=== PATIENT | male | born 1945 | race Caucasian/White ===

== ENCOUNTER 2019-05-11 10:49 | Day surgery (SDC) | payer MEDICARE, OTHER ==
[2019-05-11] VITALS (10 sets, daily range): BP systolic 131–147; BP diastolic 77–110
[~2019-05-11] VITALS: Ht 185.4 cm; Wt 95.3 kg
[2019-05-11] MEDS ORDERED: HEParin (CATH LAB) 2,000 ML IV ONE (10:53)
[2019-05-11] MEDS ORDERED: LIDOCAINE 1% INJ 20 ML 20 ML VIAL ONE (10:53)
[2019-05-11] MEDS ORDERED: NS IV 1000 ML 1,000 ML ONE (10:53)
[2019-05-11 11:25] LABS: HEMOGLOBIN 14.8 G/DL (13.3-17.7); MEAN PLATELET VOLUME 9.5 FL (7.4-10.4); RED CELL DISTRIBUTION WIDTH 13.4 % (10.0-14.5); WHITE BLOOD COUNT 13.9 10^3/uL (4.3-11.0)
[2019-05-11] MEDS ORDERED: VIT1CAPS44 PO (11:32)
[2019-05-11] MEDS ORDERED: METF-398 PO (11:32)
[2019-05-11] MEDS ORDERED: ASPI325T32 PO (11:32)
[2019-05-11] MEDS ORDERED: GABA300S2 PO (11:32)
[2019-05-11] MEDS ORDERED: LISI-552 PO (11:32)
[2019-05-11] MEDS ORDERED: GABA-488 PO (11:34)
--- NOTE | 2019-05-11 11:36 | NUR ---
SPOKE WITH PT (HE BROUGHT IN HOME MEDS) WELL GOING THRU THE EXT MED HIS TO COMPLETE THE MED REC. ALL MEDICATION BOTTLES HE BROUGHT IN AND WERE DOCUMENTED HAD CURRENT DATING ON THEM. PLEASE NOTE: LISINOPRIL 20MG: PATIENT ONLY TAKES 1/2 A TAB TO EQUAL A 10MG DOSE GABAPENTIN 300MG: PATIENT TAKES 3 CAPS TID FOR A TOTAL FOR OF 900MG TID OTC MEDICATIONS: PRESERVISION AEREDS 2: 1 CAP BID ASPIRIN 325M TAB HS
[2019-05-11 11:39] LABS: PROTHROMBIN TIME PATIENT 13.5 SEC (12.2-14.7)
[2019-05-11 11:44] LABS: ALBUMIN 4.4 GM/DL (3.2-4.5); BILIRUBIN,TOTAL 1.1 MG/DL (0.1-1.0); CALCIUM 9.6 MG/DL (8.5-10.1); CREATININE SERUM 1.49 MG/DL (0.60-1.30); POTASSIUM 4.2 MMOL/L (3.6-5.0); TOTAL PROTEIN 8.1 GM/DL (6.4-8.2)
[2019-05-11] MEDS ORDERED: fentaNYL INJECTION 100 MCG/2 ML AMP ONE (11:44)
[2019-05-11] MEDS ORDERED: MIDAZOLAM 5 MG/5 ML (VERSED) VIAL ONE (11:44)
--- NOTE | 2019-05-11 11:58 | Cardiac Procedure Note-CS/ASA ---
Pre-Procedure Note Pre-Op Procedure Note H&P Reviewed The H&P was reviewed, patient examined and no changes noted. Date H&P Reviewed: May 11, 2019 Time H&P Reviewed: 11:58 Conscious Sedation Pre-Proced Time 11:58 ASA Score 3 For ASA 3 and 4: Consider anesthesia and medical clearance. Also, for patients with a history of failed moderate sedation consider anesthesia. Airway Lungs Heart ASA score ASA 1: a normal healthy patient ASA 2: a patient with a mild systemic disease (mid diabetes, controlled hypertension, obesity ASA 3: a patient with a severe systemic disease that limits activity (angina, COPD, prior Myocardial infarction) ASA 4: a patient with an incapacitating disease that is a constant threat to life (CHF, renal failure) ASA 5: a moribund patient not expected to survive 24 hrs. (ruptured aneurysm) ASA 6: a declared brain- patient whose organs are being harvested. For emergent operations, add the letter E after the classification Mallampati Classification Grade 2 Sedation Plan Analgesia, Amnesia, Plan communicated to team members, Discussed options with patient/fam, Discussed risks with patient/fam The patient is an appropriate candidate to undergo the planned procedure, sedation, and anesthesia. The patient immediately re-assessed prior to indication. LAMAR LARKIN MD FACP FAC CCDS May 11, 2019 11:58
[2019-05-11] MEDS ORDERED: HEParin 1000 UNIT/ML (10ML VIAL) FOR BOLUS ONE (12:23)
[2019-05-11] MEDS ORDERED: EPTIFIBATIDE BOLUS 20 ML IV ONE (12:23)
[2019-05-11] MEDS ORDERED: NITRO DRIP 25000 MCG/D5W 250 ML IV ONE (12:27)
[2019-05-11] MEDS ORDERED: CLOPIDOGREL 300 MG (PLAVIX) TABLET PO ONE (12:59)
[2019-05-11] MEDS ORDERED: ASPIRIN 81 MG CHEW (CHILDREN'S ASA) ONE (13:00)
[2019-05-11] MEDS ORDERED: PATIENT MAY USE OWN MEDS, ALL PO SCH (13:15)
--- NOTE | 2019-05-11 13:23 | CARDIAC CATHETERIZATION ---
DATE OF SERVICE: 05/11/2019 CARDIAC CATHETERIZATION AND CORONARY INTERVENTION The patient is a 74-year-old man with multiple coronary artery disease risk factors who has symptoms that are suggestive of new onset of angina. Cardiac catheterization was carried out today after having obtained an informed consent for cardiac catheterization and possible ad hoc coronary intervention. DESCRIPTION OF PROCEDURE: Vigorous perioperative hydration was initiated well prior to the cardiac catheterization. This was because the patient has evidence of diabetic nephropathy and chronic kidney disease. Vigorous perioperative hydration was carried out to reduce risk of contrast nephropathy. He was brought to the cardiac catheterization laboratory. The right groin was prepared and draped in the usual sterile fashion. Lidocaine 1% was used for local anesthesia. Modified Seldinger technique was used to advance a 5-Faroese sheath into the right femoral artery. A 5-Faroese JL4 catheter for left coronary angiography, 5-Faroese JR4 catheter for right coronary angiography, 5-Faroese pigtail catheter was used for left heart catheterization. Left ventricular angiography was not performed. This was to conserve contrast to reduce risk of contrast nephropathy. PERCUTANEOUS INTERVENTION TO THE LEFT ANTERIOR DESCENDING: Following completion of the diagnostic procedure, we exchanged the sheath over a wire for a 6-Faroese sheath. We used a 6-Faroese JL4 guide catheter to engage the left coronary artery. We gave 6000 units of intravenous heparin and double bolus of Integrilin. We advanced a ChoICE floppy wire across the 90% stenosis in the distal left anterior descending. We advanced Alpine Xience 2.25 x 12 mm stent to the lesion and the stent was deployed at 16 atmospheres, achieving a final stent lumen size of approximately 2.55. Subsequent angiography revealed 0% residual stenosis at the previous site of 90% stenosis. Angioplasty equipment was removed. Angiography of the right femoral artery was carried out through the sheath. Mynx was used to achieve hemostasis. As stated, vigorous perioperative hydration was started prior to the procedure, continued during the procedure and afterwards. HEMODYNAMICS: Left ventricular end-diastolic pressure following coronary angiography was 15 mmHg. There was no significant pressure gradient on pullback across the aortic valve. Ascending aortic pressure was 130/63 with a mean of 90 mmHg. CORONARY ANGIOGRAPHY: There is mild plaque scattered throughout the coronary vessels. Left anterior descending artery does not exhibit significant obstructive disease. Left anterior descending artery has 60% midvessel and 90% distal stenosis. Distal stenosis was stented with Alpine Xience 2.25 x 12 mm stent that was deployed at 16 atmospheres. First diagonal branch of left anterior descending artery is of a rather small caliber and has multiple 90% stenoses in its proximal portion. The left circumflex artery has approximately 40% proximal stenosis. Left circumflex artery is dominant. Right coronary artery is small and nondominant. It has multiple stenoses of 60% to 70% in its proximal and mid portion and up to 90% in its distal portion. CONCLUSIONS: 1. Coronary artery disease as detailed above. A 90% distal left anterior descending artery stenosis was stented with Alpine Xience 2.25 x 12 mm stent deployed at 16 atmospheres. The mid left anterior descending artery has 60% stenosis. A small caliber first diagonal branch has 90% proximal stenoses. The right coronary artery is small and nondominant and has multiple stenoses with up to 90% stenosis in its distal portion. 2. Elevated left ventricular end-diastolic pressure. DISCUSSION AND RECOMMENDATIONS: Dual antiplatelet therapy is being initiated. He remains hospitalized for observation after today's procedure. If symptoms continue, we can give consideration to percutaneous intervention to the small caliber diagonal and the right coronary. Ideally, however, it would be best to treat these medically (if the patient remains asymptomatic). Job ID: [id number] DocumentID: [id number] Dictated Date: 05/11/2019 12:56:38 Java Front End Web Developer Date: 05/11/2019 13:22:30 Dictated By: LAMAR LARKIN MD, MA, FACP, FACC,
[2019-05-11] MEDS: NS IV 1000 ML 1,000 ML IV SCH (14:04)
[2019-05-11] MEDS: inSUlin ASPART (NovoLOG) 1 UNIT/0.01 ML (CHARGE PER UNIT) SC SCH ×2 (14:42→21:17)
[2019-05-11] MEDS: PRESERVISION PO SCH (16:05)
[2019-05-11] MEDS ORDERED: GABAPENTIN 300 MG (NEURONTIN) CAP PO SCH (21:00)
[2019-05-11] MEDS ORDERED: guaiFENesin/DM (ROBITUSSIN DM) 10 ML UDC ONE (21:06)
[2019-05-11] MEDS: GABAPENTIN 300 MG (NEURONTIN) CAP PO SCH (21:15)
[2019-05-11] MEDS: guaiFENesin/DM (ROBITUSSIN DM) 10 ML UDC PO PRN (21:18)
[2019-05-12] VITALS: BP 136/84
[2019-05-12] MEDS: guaiFENesin/DM (ROBITUSSIN DM) 10 ML UDC PO PRN ×2 (00:20→03:26)
[2019-05-12] MEDS: NS IV 1000 ML 1,000 ML IV SCH (02:44)
[2019-05-12 03:29] VITALS: BP 139/80
[2019-05-12 03:56] LABS: HEMOGLOBIN 12.5 G/DL (13.3-17.7); MEAN PLATELET VOLUME 9.7 FL (7.4-10.4); RED CELL DISTRIBUTION WIDTH 13.2 % (10.0-14.5); WHITE BLOOD COUNT 11.9 10^3/uL (4.3-11.0)
[2019-05-12 04:25] LABS: CALCIUM 8.7 MG/DL (8.5-10.1); CREATININE SERUM 1.22 MG/DL (0.60-1.30); POTASSIUM 4.3 MMOL/L (3.6-5.0)
[2019-05-12] MEDS: inSUlin ASPART (NovoLOG) 1 UNIT/0.01 ML (CHARGE PER UNIT) SC SCH (06:53)
[2019-05-12] MEDS ORDERED: MULTIVIT W/MINERALS TAB (THERAGRAN M) PO SCH (07:00)
[2019-05-12 08:00] VITALS: BP 139/68
--- NOTE | 2019-05-12 08:10 | Progress Note - Cardiology ---
Cardiology SOAP Progress Note Objective: I&O/Vital Signs Weight (Pounds): 210 Weight (Ounces): 0.0 Weight (Calculated Kilograms): 95.627940 Results/Procedures: Labs Microbiology 05/11/19 MRSA Screen - Final, Complete MRSA not isolated A/P: Assessment: Coronary artery disease: A 90% distal left anterior descending artery stenosis was stented with Alpine Xience 2.25 x 12 mm stent deployed at 16 atmospheres. The mid left anterior descending artery has 60% stenosis. A small caliber first diagonal branch has 90% proximal stenoses. The right coronary artery is small and nondominant and has multiple stenoses with up to 90% stenosis in its distal portion. Elevated left ventricular end-diastolic pressure. Per cardiac cath of 05-11-19 Chews tobacco - cessation advised H/o hypertension DM II Fam h/o early CAD (father and brother) ROMINA DSOUZA May 12, 2019 08:10
[2019-05-12] MEDS: GABAPENTIN 300 MG (NEURONTIN) CAP PO SCH (08:57)
[2019-05-12 09:00] VITALS: BP 139/68
[2019-05-12] MEDS ORDERED: lisINopril 20 MG (PRINIVIL) TABLET PO SCH ×2 (09:00)
[2019-05-12] MEDS ORDERED: ASPIRIN 81 MG CHEW (CHILDREN'S ASA) PO SCH (09:00)
[2019-05-12] MEDS: PRESERVISION PO SCH (09:00)
[2019-05-12] MEDS ORDERED: CLOPIDOGREL 75 MG (PLAVIX) TABLET PO SCH (09:00)
[2019-05-12] MEDS ORDERED: lisINopril 10 MG (PRINIVIL) TABLET PO SCH (09:00)
[2019-05-12] MEDS ORDERED: CLOP75TA28 PO (09:43)
[2019-05-12] MEDS ORDERED: METO-387 PO (09:43)
[2019-05-12] MEDS ORDERED: ASPI-999 PO (09:43)
--- NOTE | 2019-05-12 09:44 | Discharge Inst-Cardiology ---
Discharge Inst-Cardiac Discharge Medications New Medications: Aspirin (Aspirin) 81 Mg Tab.chew 81 MG PO DAILY, #90 TAB 5 Refills Clopidogrel Bisulfate (Clopidogrel) 75 Mg Tablet 75 MG PO DAILY, #30 TAB 5 Refills Metoprolol Succinate (Metoprolol Succinate) 25 Mg Tab.er.24h 25 MG PO DAILY, #30 TAB 5 Refills Continued Medications: Gabapentin (Gabapentin) 300 Mg Capsule 900 MG PO TID, CAP TAKES 3 (300MG) TID Lisinopril (Lisinopril) 20 Mg Tablet 10 MG PO DAILY, TAB TAKES 1/2 OF A 20MG TAB FOR A 10MG DOSE Metformin HCl (Metformin HCl) 850 Mg Tablet 850 MG PO TIDWM, TAB Vit C/E/Zn/Coppr/Lutein/Zeaxan (Preservision Areds 2 Softgel) 1 Each Capsule 1 EACH PO BID, CAP Discontinued Medications: Aspirin (Aspirin EC) 325 Mg Tablet. 325 MG PO HS, TAB New, Converted or Re-Newed RX: Transmitted to Pharmacy Patient Instructions Patient Instructions: DO NOT RESTART METFORMIN UNTIL TUESDAY, MAY 14, 2019 Please schedule follow up appointment to see Dr. Negron in one week ROMINA DSOUZA May 12, 2019 09:44
--- NOTE | 2019-05-12 14:37 | Progress Note - Cardiology ---
Cardiology SOAP Progress Note Subjective: No cp or palp or syncope or shortness of breath or groin discomfort Wishes to go home Objective: I&O/Vital Signs 05/12/19 05/12/19 05/12/19 05/12/19 03:29 07:00 08:00 08:00 Temp 98.1 98.2 Pulse 97 80 81 Resp 24 20 B/P (MAP) 139/80 (99) 139/68 (91) Pulse Ox 94 97 O2 Delivery Room Air Room Air Room Air 05/12/19 05/12/19 09:00 10:50 Pulse 83 Resp 51 B/P (MAP) 139/68 (91) Pulse Ox 97 Weight (Pounds): 210 Weight (Ounces): 0.0 Weight (Calculated Kilograms): 95.744795 Groin site without hematoma: Yes Condition: DP/PT pulses palpable Device Insertion Site: without hematoma, no signs of inflammation Bruising: mild bruising Constitutional: AAO x 3, well-developed, well-nourished Respiratory: No accessory muscle use, No respiratory distress; lungs clear to percussion, lungs clear to auscultation Cardiovascular: regular rate-rhythm, S1 and S2, systolic murmur (2/6 EDU at card base) Gastrointestional: No tender; soft; No guarding, No rebound; audible bowel sounds Extremities: No clubbing, No cyanosis, No significant edema Neurologic/Psychiatric: oriented x 3, grossly intact, power is 5/5 both on sides Skin: No rash on exposed areas, No ulcerations on exposed areas Results/Procedures: Labs Laboratory Tests 05/11/19 14:36: Glucometer 139H 05/11/19 21:17: Glucometer 175H 05/12/19 03:06: White Blood Count 11.9H, Red Blood Count 4.12L, Hemoglobin 12.5L, Hematocrit 39L , Mean Corpuscular Volume 94, Mean Corpuscular Hemoglobin 30, Mean Corpuscular Hemoglobin Concent 32, Red Cell Distribution Width 13.2, Platelet Count 240, Joselin n Platelet Volume 9.7, Sodium Level 138, Potassium Level 4.3, Chloride Level 107, Carbon Dioxide Level 19L, Anion Gap 12, Blood Urea Nitrogen 11, Creatinine 1.22, Estimat Glomerular Filtration Rate 58, BUN/Creatinine Ratio 9, Glucose Level 172H, Calcium Level 8.7 Microbiology 05/11/19 MRSA Screen - Final, Complete MRSA not isolated Laboratory Tests 05/11/19 11:18 05/12/19 03:06 A/P: Assessment: Coronary artery disease: Card cath of 05/11/19: A 90% distal left anterior descending artery stenosis was stented with Alpine Xience 2.25 x 12 mm stent deployed at 16 atmospheres. The mid left anterior descending artery has 60% stenosis. A small caliber first diagonal branch has 90% proximal stenoses. The right coronary artery is small and nondominant and has multiple stenoses with up to 90% stenosis in its distal portion. Elevated left ventricular end-diastolic pressure Chews tobacco - cessation advised H/o hypertension DM II Fam h/o early CAD (father and brother) Plan: * I reviewed and discussed with him and his fam the findings of cath and i nterventions undertaken * Risk factor mod reviewed * Tobacco cessation advised * Med compliance advised * Close outpt f/u advised * Questions answered in detail LAMAR LARKIN MD FACP FAC CCDS May 12, 2019 14:37
== END 2019-05-12 10:50 | disposition home or self-care (01) ==
LOC: CATH 10:49 → ICU 13:19 → CATH 05-12 10:50
PROVIDERS: ATTEND Internal Medicine Cardiovascular Disease
DX: I25.10 Atherosclerotic heart disease of native coronary artery without angina pectoris (principal); I10 Essential (primary) hypertension; E11.9 Type 2 diabetes mellitus without complications; Z82.49 Family history of ischemic heart disease and other diseases of the circulatory system; F17.220 Nicotine dependence, chewing tobacco, uncomplicated; Z11.2 Encounter for screening for other bacterial diseases; Z79.82 Long term (current) use of aspirin; Z79.899 Other long term (current) drug therapy; Z79.84 Long term (current) use of oral hypoglycemic drugs
CPT/HCPCS: 36415; 80048; 80053; 80061; 82962; 85027; 85610; 85730; 87081; 93005; 93458

== ENCOUNTER 2019-11-02 07:33 | Emergency (ER) | payer MEDICARE, OTHER ==
[~2019-11-02] VITALS: Ht 185 cm; Wt 94.3 kg
[~2019-11-02 07:33] MED LIST: ASPI-999 PO; ASPI325T32 PO; CLOP75TA28 PO; GABA-488 PO; GABA300S2 PO; LISI-552 PO; METF-398 PO; MTP25TSR PO; VIT1CAPS44 PO
--- NOTE | 2019-11-02 07:51 | ED GU-Male ---
General Chief Complaint: - Urinary Stated Complaint: CAN'T URINATE Source: patient Exam Limitations: no limitations History of Present Illness Date Seen by Provider: Nov 02, 2019 Time Seen by Provider: 07:40 Initial Comments The patient is a pleasant 74-year-old male who presents for evaluation of difficulty urinating. He states that his symptoms started yesterday and that he woke up early this morning with the urge to urinate and was only able to "dribble a little". 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 He states that he had a catheter during the procedure but denies ever having any other catheters placed or any acute urinary retention. A bedside bladder scan shows approximately 50 mL's of urine and a more formal ED physician ultrasound shows what appears to be less than 100 mL's. The patient denies history of UTI. He has no other complaints at this time. He denies fevers or chills, chest pain or shortness of breath, abdominal or back pain. He denies any gross hematuria. Timing/Duration: just prior to arrival Severity/Quality: mild Location: suprapubic Radiation: none Activities at Onset: none Prior Genitourinary Problems: none Allergies and Home Medications Allergies Coded Allergies: atorvastatin (Verified Allergy, Mild, Rash, 05/11/19) Home Medications Aspirin 81 Mg Tab.chew, 81 MG PO DAILY Prescribed by: ROMINA DSOUZA on 05/12/19942 Clopidogrel Bisulfate 75 Mg Tablet, 75 MG PO DAILY Prescribed by: ROMINA DSOUZA on 05/12/19942 Gabapentin 300 Mg Capsule, 900 MG PO TID, (Reported) TAKES 3 (300MG) TID Lisinopril 20 Mg Tablet, 10 MG PO DAILY, (Reported) TAKES 1/2 OF A 20MG TAB FOR A 10MG DOSE Metformin HCl 850 Mg Tablet, 850 MG PO TIDWM, (Reported) Metoprolol Succinate 25 Mg Tab.er.24h, 25 MG PO DAILY Prescribed by: ROMINA DSOUZA on 05/12/19942 Vit C/E/Zn/Coppr/Lutein/Zeaxan 1 Each Capsule, 1 EACH PO BID, (Reported) Patient Home Medication List Home Medication List Reviewed: Yes Review of Systems Review of Systems Constitutional: no symptoms reported EENTM: no symptoms reported Respiratory: no symptoms reported Cardiovascular: no symptoms reported Gastrointestinal: no symptoms reported Genitourinary: urgency Musculoskeletal: no symptoms reported Skin: no symptoms reported Psychiatric/Neurological: No Symptoms Reported Endocrine: No Symptoms Reported Hematologic/Lymphatic: No Symptoms Reported All Other Systemes Reviewed Negative Unless Noted: Yes Past Xtpwaow-Ytcvmg-Qbgreb Hx Past Med/Social Hx: Reviewed Nursing Past Med/Soc Hx Patient Social History Type Used: Smokeless Tobacco Recent Foreign Travel: No Physical Abuse: No Sexual Abuse: No Mistreated: No Fear: No Immunizations Up To Date Date of Pneumonia Vaccine: May 11, 2015 Past Medical History Respiratory: No High Cholesterol, Hypertension Neurological: Yes ("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 0.0oz. 95.684041tb; 27.7 BMI Method: General Appearance: WD/WN, no apparent distress HEENT: PERRL/EOMI, normal ENT inspection Neck: non-tender, full range of motion Cardiovascular: normal peripheral pulses, regular rate, rhythm, no edema Respiratory: chest non-tender, lungs clear, normal breath sounds Gastrointestinal: normal bowel sounds, soft Back: normal inspection, no CVA tenderness Extremities: normal range of motion, non-tender, no pedal edema Neurologic/Psychiatric: no motor/sensory deficits, alert, normal mood/affect, oriented x 3 Skin: normal color, warm/dry Lymphatic: no adenopathy Progress/Results/Core Measures Suspected Sepsis SIRS Temperature: Pulse: Respiratory Rate: Laboratory Tests 11/02/19 09:05: White Blood Count 11.5H Blood Pressure / Mean: Laboratory Tests 11/02/19 09:05: Creatinine 1.57H, Platelet Count 246, Total Bilirubin 0.5 Results/Orders Lab Results Laboratory Tests Test 11/02/19 08:00 11/02/19 09:05 Range/Units Urine Color YELLOW Urine Clarity CLEAR Urine pH 6.0 5-9 Urine Specific Perry 1.015 L 1.016-1.022 Urine Protein NEGATIVE NEGATIVE Urine Glucose (UA) NEGATIVE NEGATIVE Urine Ketones NEGATIVE NEGATIVE Urine Nitrite NEGATIVE NEGATIVE Urine Bilirubin NEGATIVE NEGATIVE Urine Urobilinogen 0.2 < = 1.0 MG/DL Urine Leukocyte Esterase NEGATIVE NEGATIVE Urine RBC (Auto) 1+ H NEGATIVE Urine RBC 5-10 H /HPF Urine WBC 2-5 /HPF Urine Squamous Epithelial Cells RARE /HPF Urine Crystals NONE /LPF Urine Bacteria NEGATIVE /HPF Urine Casts NONE /LPF Urine Mucus NEGATIVE /LPF Urine Culture Indicated NO White Blood Count 11.5 H 4.3-11.0 10^3/uL Red Blood Count 4.59 4.35-5.85 10^6/uL Hemoglobin 13.9 13.3-17.7 G/DL Hematocrit 43 40-54 % Mean Corpuscular Volume 94 80-99 FL Mean Corpuscular Hemoglobin 30 25-34 PG Mean Corpuscular Hemoglobin Concent 32 32-36 G/DL Red Cell Distribution Width 12.7 10.0-14.5 % Platelet Count 246 130-400 10^3/uL Mean Platelet Volume 9.2 7.4-10.4 FL Neutrophils (%) (Auto) 69 42-75 % Lymphocytes (%) (Auto) 15 12-44 % Monocytes (%) (Auto) 12 0-12 % Eosinophils (%) (Auto) 3 0-10 % Basophils (%) (Auto) 1 0-10 % Neutrophils # (Auto) 7.9 H 1.8-7.8 X 10^3 Lymphocytes # (Auto) 1.8 1.0-4.0 X 10^3 Monocytes # (Auto) 1.4 H 0.0-1.0 X 10^3 Eosinophils # (Auto) 0.3 0.0-0.3 10^3/uL Basophils # (Auto) 0.1 0.0-0.1 10^3/uL Sodium Level 140 135-145 MMOL/L Potassium Level 4.6 3.6-5.0 MMOL/L Chloride Level 100 98-107 MMOL/L Carbon Dioxide Level 27 21-32 MMOL/L Anion Gap 13 5-14 MMOL/L Blood Urea Nitrogen 18 7-18 MG/DL Creatinine 1.57 H 0.60-1.30 MG/DL Estimat Glomerular Filtration Rate 43 BUN/Creatinine Ratio 11 Glucose Level 163 H 70-105 MG/DL Calcium Level 9.4 8.5-10.1 MG/DL Corrected Calcium 9.2 8.5-10.1 MG/DL Total Bilirubin 0.5 0.1-1.0 MG/DL Aspartate Amino Transf (AST/SGOT) 13 5-34 U/L Alanine Aminotransferase (ALT/SGPT) 10 0-55 U/L Alkaline Phosphatase 72 40-136 U/L Total Protein 7.1 6.4-8.2 GM/DL Albumin 4.3 3.2-4.5 GM/DL My Orders Orders - NAVEEN GARNER DO Urinalysis (11/02/19 07:37) Cbc With Automated Diff (11/02/19 09:01) Comprehensive Metabolic Panel (11/02/19 09:01) Ed Iv/Invasive Line Start (11/02/19 09:01) Ct Abdomen/Pelvis Wo (11/02/19 09:01) Ns Iv 1000 Ml (Sodium Chloride 0.9%) (11/02/19 09:15) Phenazopyridine Tablet (Pyridium Tablet) (11/02/19 09:15) Ketorolac Injection (Toradol Injection) (11/02/19 09:30) Medications Given in ED Current Medications Medications Dose Ordered Sig/Leticia Route Start Time Stop Time Status Last Admin Dose Admin Ketorolac Tromethamine 15 mg ONCE ONCE IVP 11/02/19 09:30 11/02/19 09:31 DC 11/02/19 09:35 15 MG Phenazopyridine HCl 100 mg ONCE ONCE PO 11/02/19 09:15 11/02/19 09:16 DC 11/02/19 09:10 100 MG Vital Signs/I&O 11/02/19 07:45 Temp 35.3 Pulse 83 Resp 18 B/P (MAP) 151/77 (101) Pulse Ox 97 O2 Delivery Room Air Capillary Refill : Progress Note : Progress Note @0902 - The patient is now complaining of dysuria and low back/flank pain. He is noted to have some blood in his urine however no sign of infection is present. Labs will be performed to ensure his kidney function is adequate and a CT will be performed to evaluate any sort of urinary obstruction or ureterolithiasis. @1005 - Case discussed with the nurse for Dr. Cornelius, urology in [place], who states that Dr. Cornelius is in a case and will call back shortly and to keep the patient nothing by mouth and to have his CT scan burn to a disc so they can view the images. @8193 - Dr. Fabrizio Sainz excepts the transfer to [facility] in [place]. The patient prefers to go by EMS which is entirely reasonable. Dr. Cornelius plans to remove the stone today and states to keep the patient nothing by mouth. Diagnostic Imaging Diagonstic Imaging: CT Comments Draft Date of Exam:11/02/19 CT ABDOMEN/PELVIS WO PROCEDURE: CT abdomen and pelvis without contrast. TECHNIQUE: Multiple contiguous axial images were obtained through the abdomen and pelvis without the use of intravenous contrast. Auto Exposure Controls were utilized during the CT exam to meet ALARA standards for radiation dose reduction. INDICATION: Patient is unable to urinate since the previous day. No history of stones. Patient has right abdominal pain. FINDINGS: The lung bases are clear. The liver is normal in size without focal lesions. The gallbladder is unremarkable. There is no biliary ductal dilatation. The spleen is normal. The pancreas and adrenal glands are unremarkable. The left kidney and ureter are unremarkable. There is moderate right hydronephrosis secondary to an ovoid stone at the level of the right UVJ measuring approximately 9.6 x 6.8 mm. No other stones are seen in the right kidney. There is atherosclerotic calcification of the aorta which is nonaneurysmal. The bowel gas pattern is nonspecific. There is no free air. There is no ascites. The bladder is decompressed. There is no pelvic mass or adenopathy. There are degenerative changes in the spine. IMPRESSION: Moderate right hydronephrosis and hydroureter secondary to a large ovoid stone at the level of the right UVJ as described. No other acute abnormality in the abdomen or pelvis. Dictated on workstation # [id number] Dict: 11/02/19 0940 Trans: 11/02/19 0947 [id number] Interpreted by: LEDY MOSELEY MD Electronically signed by: Departure Impression Primary Impression: Hydronephrosis with obstructing calculus Additional Impressions: Difficulty urinating Acute kidney injury Disposition: XFER SHT-TRM HOSP Condition: Stable Admissions Decision to Admit Reason: Admit from ER (General) Transfer Transfer Reason: Exceeds level of care Time Spoke to Accepting Phy: 10:[address] Cornelius (urology) accepts the transfer to [facility] Transfer Time: 10:30 Transfer Facility: [facility] Method of Transfer: EMS Departure-Patient Inst. Referrals: BUTCH MESSER MD (PCP/Family) Primary Care Physician NAVEEN GARNER DO Nov 02, 2019 07:51
[2019-11-02 08:14] LABS: BACTERIA,URINE NEGATIVE /HPF; BILIRUBIN,URINE NEGATIVE (NEGATIVE); CLARITY,URINE CLEAR; COLOR,URINE YELLOW; GLUCOSE, URINE (UA) NEGATIVE (NEGATIVE); KETONES,URINE NEGATIVE (NEGATIVE); LEUKOCYTE ESTERASE ,URINE NEGATIVE (NEGATIVE); NITRITE,URINE NEGATIVE (NEGATIVE); PROTEIN,URINE NEGATIVE (NEGATIVE); SQUAMOUS EPITHELIAL CELL,UR RARE /HPF
[2019-11-02] MEDS ORDERED: PHENAZOPYRIDINE 100 MG (PYRIDIUM) TABLET PO ONE (09:15)
[2019-11-02] MEDS ORDERED: NS IV 1000 ML 1,000 ML IV SCH (09:15)
[2019-11-02] MEDS ORDERED: KETOROLAC 30 MG/ML VIAL IVP ONE (09:30)
[2019-11-02 09:38] LABS: BASOPHILS % (AUTO) 1 % (0-10); EOSINOPHILS % (AUTO) 3 % (0-10); HEMATOCRIT 43 % (40-54); HEMOGLOBIN 13.9 G/DL (13.3-17.7); LYMPHOCYTES # (AUTO) 1.8 X 10^3 (1.0-4.0); LYMPHOCYTES % (AUTO) 15 % (12-44); MEAN CORPUSCULAR HEMOGLOBIN 30 PG (25-34); MEAN CORPUSCULAR HGB CONC 32 G/DL (32-36); MEAN CORPUSCULAR VOLUME 94 FL (80-99); MEAN PLATELET VOLUME 9.2 FL (7.4-10.4); MONOCYTES # (AUTO) 1.4 X 10^3 (0.0-1.0); MONOCYTES % (AUTO) 12 % (0-12); NEUTROPHILS # (AUTO) 7.9 X 10^3 (1.8-7.8); NEUTROPHILS % (AUTO) 69 % (42-75); PLATELET COUNT 246 10^3/uL (130-400); RED CELL DISTRIBUTION WIDTH 12.7 % (10.0-14.5); WHITE BLOOD COUNT 11.5 10^3/uL (4.3-11.0)
[2019-11-02 09:39] LABS: BASOPHILS # (AUTO) 0.1 10^3/uL (0.0-0.1); CREATININE SERUM 1.57 MG/DL (0.60-1.30); EOSINOPHILS # (AUTO) 0.3 10^3/uL (0.0-0.3); POTASSIUM 4.6 MMOL/L (3.6-5.0)
[2019-11-02 09:40] LABS: ALBUMIN 4.3 GM/DL (3.2-4.5); BILIRUBIN,TOTAL 0.5 MG/DL (0.1-1.0); CALCIUM 9.4 MG/DL (8.5-10.1); TOTAL PROTEIN 7.1 GM/DL (6.4-8.2)
--- NOTE | 2019-11-02 09:47 | Diagnostic Imaging Report ---
PROCEDURE: CT abdomen and pelvis without contrast. TECHNIQUE: Multiple contiguous axial images were obtained through the abdomen and pelvis without the use of intravenous contrast. Auto Exposure Controls were utilized during the CT exam to meet ALARA standards for radiation dose reduction. INDICATION: Patient is unable to urinate since the previous day. No history of stones. Patient has right abdominal pain. FINDINGS: The lung bases are clear. The liver is normal in size without focal lesions. The gallbladder is unremarkable. There is no biliary ductal dilatation. The spleen is normal. The pancreas and adrenal glands are unremarkable. The left kidney and ureter are unremarkable. There is moderate right hydronephrosis secondary to an ovoid stone at the level of the right UVJ measuring approximately 9.6 x 6.8 mm. No other stones are seen in the right kidney. There is atherosclerotic calcification of the aorta which is nonaneurysmal. The bowel gas pattern is nonspecific. There is no free air. There is no ascites. The bladder is decompressed. There is no pelvic mass or adenopathy. There are degenerative changes in the spine. IMPRESSION: Moderate right hydronephrosis and hydroureter secondary to a large ovoid stone at the level of the right UVJ as described. No other acute abnormality in the abdomen or pelvis. Dictated by: Dictated on workstation # [id number]
[2019-11-02 11:24] VITALS: BP 148/52
--- OUTSIDE RECORDS SUMMARY | 2019-11-11 05:58 | XMS REPORT | Clinical Summary ---
Author Author Admin, Jean Rae Organization [facility] Address Unknown Phone Unavailable Allergies, Adverse Reactions, Alerts Allergy Name Reaction Description Start Date Severity Status Pr ovider No Known Allergies Eliz Elder Conditions or Problems Problem Name Problem Code Onset Date Status Entry Date Provider Comment Standard Description Annotate B P H Active Silvana Cornelius MD Hypertrophy (benign) of prostate without urinary obstruction and other lower urinary tract (LUTS) Incomplete Bladder Emptying Active Silvana Cornelius MD Retention of urine, unspecified BMI 28-28.9 Active Silvana Cornelius MD Body Mass Index 28.0-28.9, adult Overweight (BMI 25-29.9) Active Silvana hernandez MD Overweight Gross Hematuria 597.1 Active Silvana Rae URETERAL CALCULUS 592.1 Active Silvana Cornelius MD Calculus of ureter Medication List Medication Instructions Start Date Stop Date Generic Name NDC Status Provider Patient Instruction METOPROLOL SUCCINATE ER 25 MG ORAL TABLET EXTENDED RELEASE 2 4 HOUR once daily METOPROLOL SUCCINATE 40088784775 Active Silvana Cornelius MD Active PLAVIX 75 MG ORAL TABLET once daily CLOPIDOGREL BISULFATE 83327007842 Active Silvana Cornelius MD Active PRESERVISION AREDS ORAL TABLET 1 tablet twice daily MULTIPLE VITAMINS-MINERALS 83470723265 Active Silvana Cornelius MD Act jesús GLUCOPHAGE 500 MG ORAL TABLET 1 tablet three times daily METFORMIN HCL 63902379911 Active Silvana Cornelius MD Active LISINOPRIL 10 MG ORAL TABLET LISINOPRI L 13558553736 No Longer Active Silvana Cornelius MD Active GLUCOPHAGE 850 MG ORAL TABLET METFORMI N HCL 95329952935 No Longer Active Silvana Cornelius MD Active FLOMAX 0.4 MG ORAL CAPSULE TAMSULOSIN HCL 44866052311 No Longer Active Silvana Cornelius MD Active ASPIRIN 325 MG ORAL TABLET ASPIRIN 8256360626 1 Active Silvana Cornelius MD Active NEURONTIN 300 MG ORAL CAPSULE GABAPENTIN 0007 3186282 Active Silvana Cornelius MD Active FLOMAX 0.4 MG ORAL CAPSULE FLOMAX 0. 4 MG ORAL CAPSULE 634931 TAMSULOSIN HCL Inactive GLUCOPHAGE 850 MG ORAL TABLET GLUCOPHAGE 850 MG ORAL TABLET 674271 METFORMIN HCL Inactive LISINOPRIL 10 MG ORAL TABLET LISINOPRIL 10 MG ORAL TABLET 238862 LISINOPRIL Inactive Advance Directives Directive Description Start Date PERMISSION TO SHARE Vital Signs Date Name Value Unit Range Description blood pressure, diastolic, repeated by physician 70 BP doty blood pressure, diastolic 70 mm[Hg] BP doty blood pressure, systolic, repeated by physician 132 BP sys blood pressure, systolic 132 mm[Hg] BP sys height E&M 73 [in_us] Bdy height pulse rate E&M 80 /min Heart rate temperature E&M 98.4 [degF] Body temp erature weight E&M 216 [lb_av] Weight Measure d Diagnostic Results Date Name Value Unit Range Description Office Visit: f/u kidney stone - Head Loader ry RBC, urine, dipstick negative protein, total urine random 2+ mg/dL Office Visit: f/u kidney stone - Urinaly sis ketones, urine, by test strip negative bilirubin, urine negative glucose, urine, semiquantitative negative pH, urine, semiquantitative 6 specific gravity, urine 1.015 urine color yellow appearance, urine clear leukocyte esterase, urine, by dipstick negative nitrite, urine, semiquantitative negative urobilinogen, urine, semiquantitative (dipstick) negative protein, urine, semiquantitative (dipstick) negative Encounters Code Encounter Date Provider Facility CPT-74299 Level 3 Est. Patient 12:25:54 [employer] Silvana hernandez MD [facility] CPT-89649 Level 3 Est. Patient 11:30:07 [employer] Silvana hernandez MD [facility] CPT-42096 Level 4 New Patient 16:00:31 CDT Silvana sibley MD [facility] Procedures Code Procedure Name Date Entry Date Standard Desc ription CPT-47761 Postop F/U Visit 15:08:43 [employer] CPT-19534 Bladder Scan 15:08:42 [employer] CPT-34362 Cystoscopy 16:00:31 CDT CPT-77604 Bladder Scan 16:00:31 CDT
== END 2019-11-02 11:20 | disposition short-term general hospital (02) ==
LOC: EDUNIT# 07:33 → ER FS 07:34
DX: N13.2 Hydronephrosis with renal and ureteral calculous obstruction (principal); N17.9 Acute kidney failure, unspecified; I10 Essential (primary) hypertension; E78.00 Pure hypercholesterolemia, unspecified; Z88.8 Allergy status to other drugs, medicaments and biological substances; Z79.82 Long term (current) use of aspirin; Z79.02 Long term (current) use of antithrombotics/antiplatelets; Z79.84 Long term (current) use of oral hypoglycemic drugs
CPT/HCPCS: 36415; 74176; 80053; 81000; 85025; 96374

== ENCOUNTER → 2019-11-05 | Outpatient (CLI) | payer MEDICARE, OTHER ==
--- NOTE | 2019-11-05 12:15 | Diagnostic Imaging Report ---
EXAMINATION: Supine abdomen at 11:35 a.m. INDICATION: Passing blood. TECHNIQUE: Two views were obtained. FINDINGS: The CT abdomen/pelvis exam performed on 11/02/2019 noted a roughly 1 cm calculus at the ureterovesical junction on the right. This was producing partial obstruction of the right collecting system. Reportedly, the calculus was recently removed. On this study, that calcification is difficult to appreciate. There are few calcifications low in the pelvis near midline. These could be secondary to the prostatic calcifications seen on the CT exam. There does appear to be greater distention of the sigmoid colon by gas than noted on the previous exam. There is also some gas now present in the small bowel. This bowel gas pattern however is nonspecific. There is no evidence for a bowel obstruction. There is no mass or organomegaly appreciated. The osseous structures are intact. IMPRESSION: 1. The obstructive calculus involving the right collecting system seen previously is no longer evident. 2. There is greater distention of the sigmoid colon by gas and there is now some gas in the small bowel. This appearance is nonspecific and may be secondary to an ileus. 3. If clinical concern regarding an underlying abnormality persists, then a repeat CT abdomen/pelvis exam should be obtained. Dictated by: Dictated on workstation # [id number]
== END ==
LOC: LAB FS 11:24
PROVIDERS: ATTEND Urology
DX: N20.0 Calculus of kidney (principal); K63.89 Other specified diseases of intestine
CPT/HCPCS: 74018

== ENCOUNTER → 2019-12-28 | Outpatient (CLI) | payer MEDICARE, OTHER ==
--- NOTE | 2019-12-28 11:09 | Diagnostic Imaging Report ---
INDICATION: Chest congestion, cough, and drainage. TECHNIQUE: PA and lateral films of the chest were obtained at 10:53 AM. FINDINGS: The heart and mediastinal silhouette are normal in appearance. The lungs are clear. There is no pneumothorax or pleural fluid. IMPRESSION: No acute process in the chest. Dictated by: Dictated on workstation # [id number]
[2019-12-28 11:48] LABS: ALBUMIN 4.3 GM/DL (3.2-4.5); BILIRUBIN,TOTAL 0.5 MG/DL (0.1-1.0); CALCIUM 9.3 MG/DL (8.5-10.1); CREATININE SERUM 1.27 MG/DL (0.60-1.30); POTASSIUM 4.5 MMOL/L (3.6-5.0); TOTAL PROTEIN 7.1 GM/DL (6.4-8.2)
[2019-12-28 11:49] LABS: BASOPHILS % (AUTO) 1 % (0-10); EOSINOPHILS % (AUTO) 6 % (0-10); HEMATOCRIT 42 % (40-54); HEMOGLOBIN 13.3 G/DL (13.3-17.7); LYMPHOCYTES % (AUTO) 18 % (12-44); MEAN CORPUSCULAR HEMOGLOBIN 30 PG (25-34); MEAN CORPUSCULAR HGB CONC 32 G/DL (32-36); MEAN CORPUSCULAR VOLUME 94 FL (80-99); MEAN PLATELET VOLUME 9.3 FL (7.4-10.4); MONOCYTES % (AUTO) 10 % (0-12); NEUTROPHILS % (AUTO) 65 % (42-75); PLATELET COUNT 262 10^3/uL (130-400); RED CELL DISTRIBUTION WIDTH 13.2 % (10.0-14.5); WHITE BLOOD COUNT 7.3 10^3/uL (4.3-11.0)
[2019-12-28 11:50] LABS: BASOPHILS # (AUTO) 0.1 10^3/uL (0.0-0.1); EOSINOPHILS # (AUTO) 0.4 10^3/uL (0.0-0.3); LYMPHOCYTES # (AUTO) 1.3 X 10^3 (1.0-4.0); MONOCYTES # (AUTO) 0.8 X 10^3 (0.0-1.0); NEUTROPHILS # (AUTO) 4.7 X 10^3 (1.8-7.8)
== END ==
LOC: LAB FS 10:41
PROVIDERS: ATTEND Nurse Practitioner Family
DX: J06.9 Acute upper respiratory infection, unspecified (principal)
CPT/HCPCS: 36415; 71046; 80053; 85025

== ENCOUNTER → 2020-03-02 | Outpatient (CLI) | payer MEDICARE, OTHER ==
[~2020-03-02] MED LIST changes: +CATHETER FLUSH 10 ML SYR IV PRN; +HOLD METFORMIN - RECEIVED CONTRAST 20 ML VIAL IV SCH; +IOHEXOL 350 MG/ML 100 ML (OMNIPAQUE 350) VIAL IV ONE; +NS 100 ML (IVPB) BAG IV ONE
--- NOTE | 2020-03-02 12:38 | Diagnostic Imaging Report ---
INDICATION: Left-sided chest pain. TECHNIQUE: Multiple contiguous axial images were obtained through the chest after administration of intravenous contrast. Auto Exposure Controls were utilized during the CT exam to meet ALARA standards for radiation dose reduction. There is no prior chest CT for comparison. FINDINGS: There are no enlarged mediastinal or hilar nodes. There are coronary artery calcifications. There are no enlarged axillary nodes or chest wall lesions. There is no pleural or pericardial fluid. Visualized portions of the upper abdomen were unremarkable. Lung parenchymal windows demonstrated no pulmonary parenchymal infiltrates. There is some mild dependent atelectatic change in the lung bases on both sides. There is no discrete mass. IMPRESSION: No evidence of adenopathy or mass lesion in the chest. Mild dependent atelectatic changes in the lung bases. No consolidation or discrete pulmonary parenchymal lesion. There are extensive coronary artery calcifications. Dictated by: Dictated on workstation # [id number]
== END ==
LOC: RAD 10:08
PROVIDERS: ATTEND Family Medicine
DX: I25.10 Atherosclerotic heart disease of native coronary artery without angina pectoris (principal); J98.11 Atelectasis; E11.22 Type 2 diabetes mellitus with diabetic chronic kidney disease; N18.3 Chronic kidney disease, stage 3 (moderate)
CPT/HCPCS: 71260

== ENCOUNTER → 2020-03-03 | Outpatient (CLI) | payer MEDICARE, OTHER ==
[~2020-03-03] MED LIST changes: -CATHETER FLUSH 10 ML SYR IV PRN; -HOLD METFORMIN - RECEIVED CONTRAST 20 ML VIAL IV SCH; -IOHEXOL 350 MG/ML 100 ML (OMNIPAQUE 350) VIAL IV ONE; -NS 100 ML (IVPB) BAG IV ONE
--- NOTE | 2020-03-03 12:03 | Diagnostic Imaging Report ---
Abdomen at 1112 hours. INDICATION: Right ureteral calculus. 2 supine views were obtained. FINDINGS: The CT abdomen/pelvis exam of 11/02/2019 noted partial obstruction right collecting system due to a 9.6 x 6.8 mm calculus at the ureterovesical junction on the right. The abdomen exam performed on 11/05/2019 reveals that the calculus was no longer evident. On this study, there is still no sign of a pathologic calcification overlying the kidneys or along the expected path of the ureters. However, both kidneys are partially obscured by overlying bowel gas and fecal material. There is no mass, organomegaly or pathological calcifications evident. The osseous structures are intact. IMPRESSION: 1. There is no evidence fora pathologic calcification. 2. If clinical concern regarding an underlying abnormality persists however, then repeat CT abdomen/pelvis exam should be obtained. Dictated by: Dictated on workstation # [id number]
== END ==
LOC: RAD FS 10:59
PROVIDERS: ATTEND Urology
DX: N20.1 Calculus of ureter (principal)
CPT/HCPCS: 74018

== ENCOUNTER → 2020-05-09 | Outpatient (CLI) | payer MEDICARE, OTHER ==
[~2020-05-09] MED LIST changes: +CATHETER FLUSH 10 ML SYR IV PRN; +REGADENOSON 0.4 MG/5 ML SYR (LEXISCAN) IV ONE
--- NOTE | 2020-05-10 20:50 | STRESS TEST ---
DATE OF SERVICE: 05/09/2020 RESTING AND POST REGADENOSON TECHNETIUM-99M TETROFOSMIN SPECT CT IMAGING ORDERING PHYSICIAN: Vidhya Howe APRN. OTHER PHYSICIAN: Dr. Larkin. CLINICAL DIAGNOSIS: Chest discomfort. Baseline images were carried out after injection of 9.85 mCi of technetium-99m Tetrofosmin. This was followed by 0.4 mg of Regadenoson and 30.5 mCi of technetium-99m Tetrofosmin for stress imaging. The electrocardiogram showed sinus rhythm at baseline. The electrocardiogram did not change significantly with the Regadenoson infusion. The patient tolerated the procedure well. Review of images at rest and following stress does not indicate any significant perfusion defects consistent with myocardial ischemia or infarction. Gated images show normal global left ventricular systolic function with normal regional wall motion. Left ventricular ejection fraction is calculated to be 56%. Left ventricular end diastolic volume is 68 mL. TID is absent (0.93). CONCLUSIONS: 1. No evidence of significant myocardial ischemia or infarction on this study. 2. Normal regional wall motion. 3. Normal global left ventricular systolic function with a calculated ejection fraction of 56%. Job ID: [id number] DocumentID: [id number] Dictated Date: 05/10/2020 12:54:34 [employer] Date: 05/10/2020 13:22:49 Dictated By: LAMAR LARKIN MD, MA, FACP, FACC, MTDD
== END ==
LOC: CARD 11:37
PROVIDERS: ATTEND Nurse Practitioner Family
DX: R07.89 Other chest pain (principal)
CPT/HCPCS: 78452; 93017; A9502

== ENCOUNTER → 2021-06-26 | Outpatient (CLI) | payer MEDICARE, OTHER ==
[~2021-06-26] VITALS: Ht 185 cm; Wt 86.0 kg
[~2021-06-26] MED LIST changes: -CATHETER FLUSH 10 ML SYR IV PRN; -LISI-552 PO; +LISI20TA26 PO
[2021-06-26] MEDS: CATHETER FLUSH 10 ML SYR IV PRN ×2 (10:23→11:58)
[2021-06-26 11:56] VITALS: BP 142/84
--- NOTE | 2021-06-26 18:07 | STRESS TEST ---
DATE OF SERVICE: 06/26/2021 RESTING AND POST REGADENOSON TECHNETIUM-99M TETROFOSMIN SPECT CT IMAGING ORDERING PHYSICIAN: Vidhya Howe APRN PRIMARY PHYSICIAN: Dr. Lagunas. OTHER PHYSICIAN: Dr. Larkin. CLINICAL DIAGNOSES: Coronary artery disease. Baseline images were carried out after injection of 10.33 mCi of technetium-99m Tetrofosmin. This was followed by 0.4 mg regadenoson and 32 mCi of technetium-99m Tetrofosmin for stress imaging. The electrocardiogram showed sinus rhythm at baseline. It did not change significantly with the regadenoson infusion. Review of images at rest and following stress does not indicate any significant perfusion defects consistent with myocardial ischemia or infarction. Gated images show normal global left ventricular systolic function with normal regional wall motion. Left ventricular ejection fraction is calculated to be 53%. Left ventricular end diastolic volume 84 mL. TID is absent (0.98). CONCLUSIONS: 1. No evidence of any significant myocardial ischemia or infarction on this study. 2. Normal regional wall motion. 3. Normal global left ventricular systolic function with a calculated ejection fraction of 53%. Job ID: [id number] DocumentID: [id number] Dictated Date: 06/26/2021 15:27:51 Relocation Director Date: 06/26/2021 18:06:05 Dictated By: LAMAR LARKIN MD, MA, FACP, FACC,
== END ==
LOC: CARD 09:43
PROVIDERS: ATTEND Nurse Practitioner Family
DX: I25.10 Atherosclerotic heart disease of native coronary artery without angina pectoris (principal)
CPT/HCPCS: 78452; 93017; 93306; A9502

== ENCOUNTER 2022-10-06 08:57 | Emergency (ER) | payer MEDICARE, OTHER ==
[~2022-10-06] VITALS: Ht 185 cm; Wt 86.0 kg
[~2022-10-06 08:57] MED LIST changes: +DOXY100T2 PO; -REGADENOSON 0.4 MG/5 ML SYR (LEXISCAN) IV ONE
[2022-10-06 09:00] VITALS: BP 150/81
[2022-10-06 09:19] LABS: BILIRUBIN,URINE NEGATIVE (NEGATIVE); CLARITY,URINE TURBID; COLOR,URINE YELLOW; GLUCOSE, URINE (UA) NEGATIVE (NEGATIVE); KETONES,URINE NEGATIVE (NEGATIVE); LEUKOCYTE ESTERASE ,URINE 3+ (NEGATIVE); NITRITE,URINE NEGATIVE (NEGATIVE); PH,URINE 6.5 (5-9); PROTEIN,URINE 2+ (NEGATIVE); RBC,URINE TNTC /HPF; WBC,URINE TNTC /HPF
--- NOTE | 2022-10-06 09:38 | ED GU-Male ---
General Chief Complaint: - Reproductive Stated Complaint: POSSIBLE UTI, BURNING Nursing Triage Note: PT REPORT BURNING WITH URINATION SINCE YESTERDAY. DIFFICULTY INITIATING A STREAM AND URGENCY. Source: patient Exam Limitations: no limitations History of Present Illness Date Seen by Provider: Oct 06, 2022 Time Seen by Provider: 09:11 Initial Comments 77-year-old male patient with history of hypertension, hyperlipidemia, diabetes mellitus and previous kidney stone complaining of urinary frequency and dysuria since yesterday afternoon and problem with starting stream of his urine with urgency. Patient denies fever and chills, flank pain, abdominal pain, nausea and vomiting, recent dehydration. Allergies and Home Medications Allergies Coded Allergies: atorvastatin (Verified Allergy, Mild, Rash, 05/11/19) Patient Home Medication List Home Medication List Reviewed: Yes Aspirin (Aspirin) 81 Mg Tab.chew, 81 MG PO DAILY Prescribed by: ROMINA DSOUZA on 05/12/19 0943 Ciprofloxacin HCl (Cipro) 250 Mg Tablet, 250 MG PO Q12H Prescribed by: Cathy meraz on 10/06/22 0946 Clopidogrel Bisulfate (Clopidogrel) 75 Mg Tablet, 75 MG PO DAILY Prescribed by: ROMINA DSOUZA on 05/12/19 0943 Doxycycline Hyclate (Doxycycline Hyclate) 100 Mg Tablet, 100 MG PO BID Prescribed by: MARNI ROY on 12/30/21 1315 Gabapentin (Gabapentin) 300 Mg Capsule, 900 MG PO TID, (Reported) Entered as Reported by: OMEGA MCDOWELL on 05/11/19 1134 Lisinopril (Lisinopril) 20 Mg Tablet, 10 MG PO DAILY, (Reported) Entered as Reported by: OMEGA MCDOWELL on 05/11/19 1132 Metformin HCl (Metformin HCl) 850 Mg Tablet, 850 MG PO TIDWM, (Reported) Entered as Reported by: OMEGA MCDOWELL on 05/11/19 1132 Metoprolol Succinate (Metoprolol Succinate) 25 Mg Tab.er.24h, 25 MG PO DAILY Prescribed by: ROMINA DSOUZA on 05/12/19 0943 Phenazopyridine HCl (Pyridium) 100 Mg Tablet, 100 MG PO TID PRN for dysuria Prescribed by: Cathy meraz on 10/06/22 0946 Vit C/E/Zn/Coppr/Lutein/Zeaxan (Preservision Areds 2 Softgel) 1 Each Capsule, 1 EACH PO BID, (Reported) Entered as Reported by: OMEGA MCDOWELL on 05/11/19 1132 Review of Systems Review of Systems Constitutional: see HPI EENTM: see HPI Respiratory: see HPI Cardiovascular: see HPI Gastrointestinal: see HPI Genitourinary: see HPI Musculoskeletal: see HPI Skin: see HPI Psychiatric/Neurological: See HPI Endocrine: See HPI Hematologic/Lymphatic: See HPI All Other Systemes Reviewed Negative Unless Noted: Yes Past Welpsaq-Usavql-Osqrlg Hx Patient Social History Tobacco Use?: No Use of E-Cig and/or Vaping dev: No Substance use?: No Alcohol Use?: No Pt feels they are or have been: Unable to obtain Past Medical History Surgeries: Yes (Colonoscopy, Prostate surgery) Respiratory: No High Cholesterol, Hypertension Neurological: Yes ("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) Genitourinary: No (OAB, Urinary Retention) Prostate Problems Gastrointestinal: No Musculoskeletal: No Endocrine: Yes Diabetes, Non-Insulin dep HEENT: Yes Hearing Impairment: Hard of Hearing Cancer: No Skin Did You Recieve Any Treatments: Yes What Type of Treatment Did You: Surgical Intervention Psychosocial: No Integumentary: Yes (Actinic Keratoses, 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 0.0oz. 95.925526iu; 25.00 BMI Method: General Appearance: WD/WN HEENT: PERRL/EOMI, normal ENT inspection Neck: non-tender, full range of motion Cardiovascular: regular rate, rhythm, no edema, no gallop, no JVD, no murmur Respiratory: chest non-tender, lungs clear, normal breath sounds, no respiratory distress, no accessory muscle use Gastrointestinal: normal bowel sounds, non tender, soft, no organomegaly, no pulsatile mass Back: normal inspection, no CVA tenderness, no vertebral tenderness Extremities: normal range of motion, non-tender, normal inspection, no pedal edema Neurologic/Psychiatric: alert, normal mood/affect, oriented x 3 Skin: normal color, warm/dry Progress/Results/Core Measures Suspected Sepsis SIRS Temperature: Pulse: 92 Respiratory Rate: 16 Blood Pressure 150 /81 Mean: 104 Results/Orders Lab Results Laboratory Tests Test 10/06/22 09:00 Range/Units Urine Color YELLOW Urine Clarity TURBID Urine pH 6.5 5-9 Urine Specific [place] 1.025 H 1.016-1.022 Urine Protein 2+ H NEGATIVE Urine Glucose (UA) NEGATIVE NEGATIVE Urine Ketones NEGATIVE NEGATIVE Urine Nitrite NEGATIVE NEGATIVE Urine Bilirubin NEGATIVE NEGATIVE Urine Urobilinogen 1.0 < = 1.0 MG/DL Urine Leukocyte Esterase 3+ H NEGATIVE Urine RBC (Auto) 3+ H NEGATIVE Urine RBC TNTC H /HPF Urine WBC TNTC H /HPF Urine Crystals NONE /LPF Urine Bacteria /HPF Urine Casts NONE /LPF Urine Mucus NEGATIVE /LPF Urine Culture Indicated YES My Orders Orders - CATHY MERAZ MD Urinalysis (10/06/22 09:09) Urine Culture (10/06/22 09:00) Ceftriaxone (Rocephin) (10/06/22 09:45) Lidocaine 1% Inj 20 Ml (Xylocaine 1% Inj (10/06/22 09:45) Medications Given in ED Current Medications Medications Dose Ordered Sig/Leticia Route Start Time Stop Time Status Last Admin Dose Admin Ceftriaxone Sodium 1,000 mg ONCE ONCE IM 10/06/22 09:45 10/06/22 09:46 DC 10/06/22 09:44 1,000 MG Lidocaine HCl 2.1 ml ONCE ONCE INJ 10/06/22 09:45 10/06/22 09:46 DC 10/06/22 09:45 2.1 ML Vital Signs/I&O 10/06/22 10/06/22 09:00 09:38 Temp 35.9 36.4 Pulse 92 82 Resp 16 16 B/P (MAP) 150/81 (104) Pulse Ox 99 99 O2 Delivery Room Air Room Air Capillary Refill : Less Than 3 Seconds Blood Pressure Mean: 104 Progress Note : Progress Note 77-year-old patient with complaining of UTI symptoms since yesterday without flank pain, nausea and vomiting, abdominal pain. Patient had unremarkable physical exam without CVA tenderness. UA showed numerous to count WBC and RBC with pending culture result. Patient treated with 1 dose of Rocephin in ER and prescription for Cipro for 7 days and Pyridium was given and advised increase fluid intake and follow-up with primary care physician and return to ER as needed. Patient did not have flank pain or abdominal pain and therefore work-up for kidney stone was not performed. Patient and his informed about test results and plan of care and missed follow-up and all questions was addressed. Departure Impression Primary Impression: Urinary tract infection Qualified Codes: N30.01 - Acute cystitis with hematuria Additional Impression: Dysuria Disposition: HOME, SELF-CARE Condition: Stable Departure-Patient Inst. Decision time for Depature: 09:42 Referrals: SELFBUTCH MD (PCP/Family) Primary Care Physician Patient Instructions: Dysuria, Adult (DC), Urinary Tract Infection, Adult ED Add. Discharge Instructions: Drink plenty of liquids Empty your bladder often Follow-up with your primary care physician in 3 days Return to ER as needed All discharge instructions reviewed with patient and/or family. Voiced understanding. Scripts Phenazopyridine HCl (Pyridium) 100 Mg Tablet 100 MG PO TID PRN for dysuria, #15 TAB Prov: CATHY MERAZ MD 10/06/22 Ciprofloxacin HCl (Cipro) 250 Mg Tablet 250 MG PO Q12H, #14 TAB Prov: CATHY MERAZ MD 10/06/22 CATHY MERAZ MD Oct 06, 2022 09:38
[2022-10-06] MEDS ORDERED: LIDOCAINE 1% INJ 20 ML VIAL INJ ONE (09:45)
[2022-10-06] MEDS ORDERED: cefTRIAXone 1,000 MG VIAL IM ONE (09:45)
[2022-10-06] MEDS ORDERED: PHEN-639 PO (09:46)
[2022-10-06] MEDS ORDERED: CIPR-226 PO (09:46)
== END 2022-10-06 09:47 | disposition home or self-care (01) ==
LOC: EDUNIT# 08:57 → ER FS 08:58
DX: N39.0 Urinary tract infection, site not specified (principal); Z87.442 Personal history of urinary calculi
CPT/HCPCS: 81000; 87077; 87088; 99284

== ENCOUNTER 2022-12-06 11:50 | Emergency (ER) | payer MEDICARE, OTHER ==
[~2022-12-06] VITALS: Ht 185 cm; Wt 90.3 kg
[~2022-12-06 11:50] MED LIST changes: +CIPR-226 PO; +PHEN-639 PO
[2022-12-06] MEDS ORDERED: ASPIRIN 81 MG CHEW (CHILDREN'S ASA) PO ONE (12:00)
--- NOTE | 2022-12-06 12:00 | ED Chest Pain ---
General Chief Complaint: Chest Wall Stated Complaint: CHEST PAIN Source: patient Exam Limitations: no limitations History of Present Illness Date Seen by Provider: Dec 06, 2022 Time Seen by Provider: 11:51 Initial Comments 77-year-old male with past medical history of CAD with stenting, hypertension, hyperlipidemia coming in due to roughly 1 month of chest pain. Worsening over time, not any better with rest, not worse with exertion. Takes daily baby aspirin and Plavix which she did take today. Denies any previous history of DVT or PE, no hemoptysis, no recent surgery, no lower extremity swelling or pain, no hormone use. Does endorse a mild cough which she states is chronic in nature. Otherwise denying any other acute complaints including any nausea, vomiting, fever, shortness of breath, abdominal pain, diarrhea, weakness, numbness, or any other concerns. Allergies and Home Medications Allergies Coded Allergies: atorvastatin (Verified Allergy, Mild, Rash, 05/11/19) Patient Home Medication List Home Medication List Reviewed: Yes Aspirin (Aspirin) 81 Mg Tab.chew, 81 MG PO DAILY Prescribed by: ROMINA DSOUZA on 05/12/19 0943 Ciprofloxacin HCl (Cipro) 250 Mg Tablet, 250 MG PO Q12H Prescribed by: Cathy webb on 10/06/22 0946 Clopidogrel Bisulfate (Clopidogrel) 75 Mg Tablet, 75 MG PO DAILY Prescribed by: ROMINA DSOUZA on 05/12/19 0943 Doxycycline Hyclate (Doxycycline Hyclate) 100 Mg Tablet, 100 MG PO BID Prescribed by: MARNI ROY on 12/30/21 1315 Gabapentin (Gabapentin) 300 Mg Capsule, 900 MG PO TID, (Reported) Entered as Reported by: OMEGA MCDOWELL on 05/11/19 1134 Lisinopril (Lisinopril) 20 Mg Tablet, 10 MG PO DAILY, (Reported) Entered as Reported by: OMEGA MCDOWELL on 05/11/19 1132 Metformin HCl (Metformin HCl) 850 Mg Tablet, 850 MG PO TIDWM, (Reported) Entered as Reported by: OMEGA MCDOWELL on 05/11/19 1132 Metoprolol Succinate (Metoprolol Succinate) 25 Mg Tab.er.24h, 25 MG PO DAILY Prescribed by: ROMINA DSOUZA on 05/12/19 0943 Phenazopyridine HCl (Pyridium) 100 Mg Tablet, 100 MG PO TID PRN for dysuria Prescribed by: Cathy webb on 10/06/22 0946 Vit C/E/Zn/Coppr/Lutein/Zeaxan (Preservision Areds 2 Softgel) 1 Each Capsule, 1 EACH PO BID, (Reported) Entered as Reported by: OMEGA MCDOWELL on 05/11/19 1132 Review of Systems Review of Systems Constitutional: No fever EENTM: No Symptoms Reported Respiratory: No Symptoms Reported Cardiovascular: See HPI Gastrointestinal: No Symptoms Reported Genitourinary: No Symptoms Reported Musculoskeletal: no symptoms reported Skin: no symptoms reported Psychiatric/Neurological: No Symptoms Reported Endocrine: No Symptoms Reported Hematologic/Lymphatic: No Symptoms Reported Past Bjmcbri-Eaxdqe-Tmxcnf Hx Patient Social History Tobacco Use?: Yes Smokeless Tobacco Frequency: Current Everyday User Use of E-Cig and/or Vaping dev: No Substance use?: No Alcohol Use?: No Pt feels they are or have been: No Immunizations Up To Date First/Initial COVID19 Vaccinat: [employer] Second COVID19 Vaccination [place]: [facility] Third COVID19 Vaccination Date: CVRxK 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: [employer] Past Medical History Surgery/Hospitalization HX: CARDIAC STENT Surgeries: Yes (Colonoscopy, Prostate surgery) Respiratory: No High Cholesterol, Hypertension Neurological: Yes ("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) Genitourinary: No (OAB, Urinary Retention) Prostate Problems Gastrointestinal: No Musculoskeletal: No Endocrine: Yes Diabetes, Non-Insulin dep HEENT: Yes Hearing Impairment: Hard of Hearing Cancer: No Skin Did You Recieve Any Treatments: Yes What Type of Treatment Did You: Surgical Intervention Psychosocial: No Integumentary: Yes (Actinic Keratoses, 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 0.0oz. 95.630626di; 25.00 BMI Method: General Appearance: No Apparent Distress, WD/WN HEENT: PERRL/EOMI, Normal ENT Inspection, Pharynx Normal Neck: Full Range of Motion, Normal Inspection, Non Tender, Supple Respiratory: Chest Non Tender, Lungs Clear, Normal Breath Sounds, No Accessory Muscle Use, No Respiratory Distress Cardiovascular: Regular Rate, Rhythm, No Edema, Normal Peripheral Pulses Gastrointestinal: Normal Bowel Sounds, Non Tender, Soft; No Distended, No Guarding Extremity: Normal Capillary Refill, Normal Inspection, Normal Range of Motion, Non Tender, No Calf Tenderness, No Pedal Edema Neurologic/Psychiatric: Alert, No Motor/Sensory Deficits, Normal Mood/Affect Skin: Normal Color, Warm/Dry Progress/Results/Core Measures Results/Orders Lab Results Laboratory Tests Test 12/06/22 12:00 Range/Units White Blood Count 8.7 4.3-11.0 10^3/uL Red Blood Count 4.42 4.30-5.52 10^6/uL Hemoglobin 13.1 L 13.3-17.7 g/dL Hematocrit 41 40-54 % Mean Corpuscular Volume 93 80-99 fL Mean Corpuscular Hemoglobin 30 25-34 pg Mean Corpuscular Hemoglobin Concent 32 32-36 g/dL Red Cell Distribution Width 14.4 10.0-14.5 % Platelet Count 276 130-400 10^3/uL Mean Platelet Volume 9.1 9.0-12.2 fL Immature Granulocyte % (Auto) 0 % Neutrophils (%) (Auto) 69 42-75 % Lymphocytes (%) (Auto) 19 12-44 % Monocytes (%) (Auto) 8 0-12 % Eosinophils (%) (Auto) 2 0-10 % Basophils (%) (Auto) 1 0-10 % Neutrophils # (Auto) 6.0 1.8-7.8 10^3/uL Lymphocytes # (Auto) 1.7 1.0-4.0 10^3/uL Monocytes # (Auto) 0.7 0.0-1.0 10^3/uL Eosinophils # (Auto) 0.2 0.0-0.3 10^3/uL Basophils # (Auto) 0.1 0.0-0.1 10^3/uL Immature Granulocyte # (Auto) 0.0 0.0-0.1 10^3/uL Prothrombin Time 12.5 12.2-14.7 SEC INR Comment 0.9 0.8-1.4 Activated Partial Thromboplast Time 26 24-35 SEC Sodium Level 140 135-145 MMOL/L Potassium Level 4.6 3.6-5.0 MMOL/L Chloride Level 103 98-107 MMOL/L Carbon Dioxide Level 25 21-32 MMOL/L Anion Gap 12 5-14 MMOL/L Blood Urea Nitrogen 19 H 7-18 MG/DL Creatinine 1.37 H 0.60-1.30 MG/DL Estimat Glomerular Filtration Rate 52 BUN/Creatinine Ratio 14 Glucose Level 111 H 70-105 MG/DL Calcium Level 9.1 8.5-10.1 MG/DL Corrected Calcium 8.9 8.5-10.1 MG/DL Magnesium Level 1.9 1.6-2.4 MG/DL Total Bilirubin 0.4 0.1-1.0 MG/DL Aspartate Amino Transf (AST/SGOT) 14 5-34 U/L Alanine Aminotransferase (ALT/SGPT) 10 0-55 U/L Alkaline Phosphatase 70 40-136 U/L Troponin I < 0.30 <0.30 NG/ML Pro-B-Type Natriuretic Peptide 442.0 <450.0 PG/ML Total Protein 7.2 6.4-8.2 GM/DL Albumin 4.3 3.2-4.5 GM/DL My Orders Orders - MARNI ROY MD Cbc With Automated Diff (12/06/22 11:57) Magnesium (12/06/22 11:57) Chest 1 View Ap/Pa Only (12/06/22 11:57) Ekg Tracing (12/06/22 11:57) Comprehensive Metabolic Panel (12/06/22 11:57) Protime With Inr (12/06/22 11:57) Partial Thromboplastin Time (12/06/22 11:57) O2 (12/06/22 11:57) Monitor-Rhythm Ecg Trace Only (12/06/22 11:57) Aspirin Chewable Tablet (Baby Aspirin Ch (12/06/22 12:00) Ed Iv/Invasive Line Start (12/06/22 11:57) Troponin I Fs (12/06/22 11:57) Probnp Fs (12/06/22 11:57) Medications Given in ED Current Medications Medications Dose Ordered Sig/Leticia Route Start Time Stop Time Status Last Admin Dose Admin Aspirin 243 mg ONCE ONCE PO 12/06/22 12:00 12/06/22 12:01 DC 12/06/22 12:07 243 MG Vital Signs/I&O 12/06/22 11:50 Temp 36.3 Pulse 80 Resp 16 B/P (MAP) 177/77 (110) Pulse Ox 97 O2 Delivery Room Air Progress Progress Note : Progress Note 77-year-old male with above history coming in due to 1 month of chest pain. ABCs were intact and vitals were stable on presentation. EKG ordered and inte rpreted by me showing no acute ischemic changes. An IV was placed and basic labs were obtained and were significant for negative troponin. Not showing any clinical signs of a DVT, breathing comfortably, not tachycardic, low risk for PE. Upon review of the chart, patient was having anginal type pain in 2018, Dr. Mendoza did a cardiac catheterization noting CAD and placed 1 stent. Patient had a stress test done in 2020 with no concerning findings. Patient most importantly has been pain-free since being in the ER. I believe he is otherwise stable for discharge with outpatient follow-up with cardiology. He was sent home with strict return precautions Initial ECG Impression Date: Dec 06, 2022 Initial ECG Impression Time: 11:55 Initial ECG Rate: 82 Initial ECG Rhythm: Normal Sinus Comment Narrow QRS, normal axis, no significant ST changes or T wave abnormalities Diagnostic Imaging Diagonstic Imaging: Xray (chest) Comments NAME: BEL FARRELL [facility] REC#: [id number] PT STATUS: REG ER : 1945 PHYSICIAN: MARNI ROY MD ADMIT DATE: 12/06/22/ER FS Draft Date of Exam:12/06/22 CHEST 1 VIEW AP/PA ONLY INDICATION: Chest pain x1 month. TECHNIQUE: Single view chest 12:01 PM. CORRELATION STUDY: 12/30/2021 FINDINGS: The heart size, mediastinal configuration and pulmonary vascularity are within normal limits. The lungs are clear with no consolidating infiltrate. There is no significant effusion or pneumothorax. IMPRESSION: 1. Negative appearing single view chest. Dictated on workstation # [id number] Dict: 12/06/22 1221 Trans: 12/06/22 1221 DO [id number] Interpreted by: ANUM PETTIT DO Electronically signed by: Departure Impression Primary Impression: Chest pain Qualified Codes: R07.82 - Intercostal pain Disposition: 01 HOME, SELF-CARE Condition: Improved Departure-Patient Inst. Decision time for Depature: 13:09 Referrals: SELFBUTCH MD (PCP/Family) Primary Care Physician Patient Instructions: Chest Pain, Adult ED Add. Discharge Instructions: You are not showing any signs of a heart attack while in the ER. Please contact Dr. Mendoza's office and get follow-up sooner if needed. MARNI ROY MD Dec 06, 2022 12:00
[2022-12-06 12:17] LABS: BASOPHILS # (AUTO) 0.1 10^3/uL (0.0-0.1); BASOPHILS % (AUTO) 1 % (0-10); EOSINOPHILS # (AUTO) 0.2 10^3/uL (0.0-0.3); EOSINOPHILS % (AUTO) 2 % (0-10); HEMATOCRIT 41 % (40-54); HEMOGLOBIN 13.1 g/dL (13.3-17.7); LYMPHOCYTES # (AUTO) 1.7 10^3/uL (1.0-4.0); LYMPHOCYTES % (AUTO) 19 % (12-44); MEAN CORPUSCULAR HEMOGLOBIN 30 pg (25-34); MEAN CORPUSCULAR HGB CONC 32 g/dL (32-36); MEAN CORPUSCULAR VOLUME 93 fL (80-99); MEAN PLATELET VOLUME 9.1 fL (9.0-12.2); MONOCYTES # (AUTO) 0.7 10^3/uL (0.0-1.0); MONOCYTES % (AUTO) 8 % (0-12); NEUTROPHILS % (AUTO) 69 % (42-75); PLATELET COUNT 276 10^3/uL (130-400); WHITE BLOOD COUNT 8.7 10^3/uL (4.3-11.0)
--- NOTE | 2022-12-06 12:22 | Diagnostic Imaging Report ---
INDICATION: Chest pain x1 month. TECHNIQUE: Single view chest 12:01 PM. CORRELATION STUDY: 12/30/2021 FINDINGS: The heart size, mediastinal configuration and pulmonary vascularity are within normal limits. The lungs are clear with no consolidating infiltrate. There is no significant effusion or pneumothorax. IMPRESSION: 1. Negative appearing single view chest. Dictated by: Dictated on workstation # [id number]
[2022-12-06 12:31] LABS: INR 0.9 (0.8-1.4); PROTHROMBIN TIME PATIENT 12.5 SEC (12.2-14.7)
[2022-12-06 12:32] LABS: ALBUMIN 4.3 GM/DL (3.2-4.5); BILIRUBIN,TOTAL 0.4 MG/DL (0.1-1.0); CALCIUM 9.1 MG/DL (8.5-10.1); CREATININE SERUM 1.37 MG/DL (0.60-1.30); MAGNESIUM 1.9 MG/DL (1.6-2.4); POTASSIUM 4.6 MMOL/L (3.6-5.0); TOTAL PROTEIN 7.2 GM/DL (6.4-8.2)
[2022-12-06 13:13] VITALS: BP 164/79
== END 2022-12-06 13:14 | disposition home or self-care (01) ==
LOC: EDUNIT# 11:50 → ER FS 11:51
DX: R07.9 Chest pain, unspecified (principal); Z95.818 Presence of other cardiac implants and grafts; Z79.82 Long term (current) use of aspirin; Z79.02 Long term (current) use of antithrombotics/antiplatelets
CPT/HCPCS: 36415; 71045; 80053; 83735; 83880; 84484; 85025; 85610; 85730; 93005; 93041